=== PATIENT | female | born 1990 | race Two or more races ===

== ENCOUNTER → 2016-10-07 | Outpatient (CLI) | payer BC ==
--- NOTE | 2016-10-07 15:38 | KCIC ---
Pelvic ultrasound History: Abnormal uterine bleeding. Comparison: None. Technique: Transabdominal ultrasound was performed to evaluate the uterine fundus. Endovaginal imaging was performed to evaluate optimally the endometrial canal and lower uterine segment. TRANSABDOMINAL IMAGING Findings: The uterus measures 7.6 cm in length and is unremarkable. The endometrium measures 10 mm. Right ovary measures 3.1 x 1.8 x 2.4 cm and demonstrates a small follicles. The left ovary measures 3.9 x 2.0 x 2.7 cm and is unremarkable. No adnexal masses are identified. No significant free fluid is identified within the pelvis. ENDOVAGINAL IMAGING Findings: Uterus has unremarkable appearance. No uterine masses are seen. Small nabothian cysts are present. Both ovaries demonstrates physiologic follicles. Both ovaries demonstrate normal vascular flow upon Doppler interrogation and are without evidence of torsion. No free fluid is seen. Impression: 1. Nabothian cysts. 2. Otherwise, unremarkable pelvic ultrasound. Electronically signed by: Brian Bermudez MD (10/07/2016 3:34 PM) [place] [id number]
== END | disposition home or self-care (01) ==
LOC: KCIC US 13:25
PROVIDERS: ATTEND Obstetrics & Gynecology
DX: N88.8 Other specified noninflammatory disorders of cervix uteri (principal); N93.9 Abnormal uterine and vaginal bleeding, unspecified
CPT/HCPCS: 76830; 76856